=== PATIENT | female | born 1970 | race African-American/Black ===

== ENCOUNTER 2022-11-01 22:24 | Inpatient (IN) | payer MEDICAID ==
[~2022-11-01] VITALS: Ht 172.7 cm; Wt 193.0 kg
[2022-11-01 23:48] LABS: COVID AG,FIA SOURCE NASAL SWAB
[2022-11-01] MEDS ORDERED: GABA-1181 PO (23:50)
[2022-11-01 23:51] LABS: BASOPHILS % (AUTO) 0.6 % (0.0-2.0); EOSINOPHILS % (AUTO) 1.9 % (1.0-6.0); HEMATOCRIT 26.2 % (36-46); HEMOGLOBIN 8.1 g/dL (12.0-16.0); LYMPHOCYTES # (AUTO) 1.1 K/uL (1.0-4.8); LYMPHOCYTES % (AUTO) 17.9 % (22.0-44.0); MEAN CORPUSCULAR HEMOGLOBIN 21.7 pg (26.0-34.0); MEAN CORPUSCULAR HGB CONC 30.8 G/dL (31.0-37.0); MEAN CORPUSCULAR VOLUME 71 fL (80-100); MONOCYTES # (AUTO) 0.7 K/uL (0.1-1.0); MONOCYTES % (AUTO) 11.4 % (2.0-9.0); NEUTROPHILS # (AUTO) 4.3 K/uL (1.8-7.7); NEUTROPHILS % (AUTO) 68.2 % (40.0-70.0); PLATELET COUNT (AUTO) 378 K/uL (150-450); RED BLOOD CELL COUNT(AUTO) 3.72 MIL/uL (4.00-5.20); RED CELL DISTRIBUTION WIDTH 18.8 % (11.5-14.5)
[2022-11-01] MEDS ORDERED: QUET400T PO (23:51)
[2022-11-01] MEDS ORDERED: QUET200T PO (23:51)
[2022-11-01] MEDS ORDERED: MELA5TAB40 PO (23:52)
[2022-11-01] MEDS ORDERED: PROP20TA18 PO (23:52)
[2022-11-01] MEDS ORDERED: BUSP7.5T7 PO (23:54)
[2022-11-01] MEDS ORDERED: TRAZ-257 PO (23:54)
[2022-11-01] MEDS ORDERED: METH-812 PO (23:56)
[2022-11-02 00:05] LABS: ALANINE AMINOTRANSFERASE 31 U/L (12-78); ALBUMIN 3.6 g/dL (3.4-5.0); ALKALINE PHOSPHATASE 76 U/L (46-116); ANION GAP 10 mmol/L (8-16); ASPARTATE AMINOTRANSFERASE 33 U/L (15-37); BILIRUBIN,TOTAL 0.3 mg/dL (0.1-1.0); CALCIUM, TOTAL 9.9 mg/dL (8.8-10.5); CARBON DIOXIDE 27 mmol/L (22-29); CHLORIDE 97 mmol/L (98-107); CREATININE 0.87 mg/dL (0.60-1.30); GLOMERULAR FILTR. RATE CALC > 60 mL/min (>60); GLUCOSE,RANDOM 108 mg/dL (70-110); SODIUM SERUM 134 mmol/L (136-145); TOTAL PROTEIN, SERUM 7.5 g/dL (6.4-8.2); UREA NITROGEN, BLOOD 5 mg/dL (7-18)
[2022-11-02 00:06] LABS: POTASSIUM 2.9 mmol/L (3.5-5.1)
[2022-11-02] MEDS ORDERED: POTASSIUM CHLORIDE 20 MEQ ER TABLET PO ONE (00:15)
[2022-11-02] MEDS ORDERED: LORazepam 2 MG TABLET PO ONE (00:45)
[2022-11-02 01:25] LABS: AMPHET/METH SCREEN,URINE POSITIVE (NEGATIVE); BARBITURATE SCREEN, URINE NEGATIVE (NEGATIVE); BENZODIAZEPINES SCREEN,URINE NEGATIVE (NEGATIVE); CANNABINOID SCREEN,URINE NEGATIVE (NEGATIVE); COCAINE SCREEN,URINE NEGATIVE (NEGATIVE); METHADONE SCREEN, URINE NEGATIVE (NEGATIVE); OPIATE SCREEN,URINE NEGATIVE (NEGATIVE)
[2022-11-02 01:30] LABS: PHENCYCLIDINE SCREEN,URINE NEGATIVE (NEGATIVE)
[2022-11-02] MEDS ORDERED: DiphenhydrAMINE HCL 50 MG/ML VIAL IM ONE (01:45)
[2022-11-02] MEDS ORDERED: HALOPERIDOL LACTATE 5 MG/ML VIAL IM ONE (01:45)
[2022-11-02] MEDS ORDERED: LORazepam 2 MG/ML VIAL IM ONE (01:45)
[2022-11-02] MEDS ORDERED: HALOPERIDOL 5 MG TABLET PO PRN (07:45)
[2022-11-02] MEDS ORDERED: BUSP15 PO (11:06)
[2022-11-02] MEDS ORDERED: INFLUENZA VIRUS VACCINE QVS 2022-23 (6MO+)/PF 60 MCG/0.5 ML SYRINGE IM. ONE (11:15)
[2022-11-02 11:39] VITALS: BP 158/76
[2022-11-02] MEDS ORDERED: MAGNESIUM HYDROXIDE SUSPENSION 30 ML UDCUP PO PRN (19:45)
[2022-11-02] MEDS ORDERED: CloNIDine HCL 0.1 MG TABLET PO PRN (19:45)
[2022-11-02] MEDS ORDERED: MAG HYDROX/AL HYDROX/SIMETH ES 30 ML SUSPENSION UDCUP PO PRN (19:45)
[2022-11-02] MEDS ORDERED: ONDANSETRON HCL 4 MG TABLET PO PRN (19:45)
[2022-11-02] MEDS ORDERED: MELATONIN 5 MG TABLET PO PRN (19:45)
[2022-11-02] MEDS ORDERED: LOPERAMIDE HCL 2 MG CAPSULE PO PRN (19:45)
[2022-11-02] MEDS ORDERED: PETROLATUM,WHITE 28 GM JELLY TP PRN (19:45)
[2022-11-02] MEDS ORDERED: ALBUTEROL SULFATE HFA 90 MCG/PUFF 8 GM INHALER IH PRN (19:45)
[2022-11-02] MEDS ORDERED: ACETAMINOPHEN 325 MG TABLET PO PRN (19:45)
[2022-11-02] MEDS ORDERED: GuaiFENesin/D-METHORPHAN [SUGAR-FREE] 200-20MG/10 ML SYRUP UDCUP PO PRN (19:45)
[2022-11-02] MEDS ORDERED: DOCUSATE SODIUM 100 MG CAPSULE PO PRN (19:45)
[2022-11-02 21:50] VITALS: BP 149/80
[2022-11-03 08:00] VITALS: BP 116/75
[2022-11-03] MEDS: PROPRANOLOL HCL 20 MG TABLET PO SCH ×2 (08:21→16:04)
[2022-11-03] MEDS: GABAPENTIN 300 MG CAPSULE PO SCH ×2 (08:21→16:04)
[2022-11-03] MEDS: BusPIRone HCL 15 MG TABLET PO SCH ×2 (08:23→20:30)
[2022-11-03] MEDS: QUEtiapine FUMARATE 200 MG TABLET PO SCH ×2 (08:26→20:30)
[2022-11-03] MEDS: DOCOSANOL 10% 2 GM CREAM TP SCH (17:00)
[2022-11-03] MEDS: ZOLPIDEM TARTRATE 10 MG TABLET PO PRN (20:34)
[2022-11-03 20:57] VITALS: BP 158/74
[2022-11-04 08:13] VITALS: BP 108/66
[2022-11-04] MEDS: DOCOSANOL 10% 2 GM CREAM TP SCH ×3 (09:07→16:33)
[2022-11-04] MEDS: BusPIRone HCL 15 MG TABLET PO SCH ×2 (09:07→20:08)
[2022-11-04] MEDS: QUEtiapine FUMARATE 200 MG TABLET PO SCH ×2 (09:07→20:08)
[2022-11-04] MEDS: GABAPENTIN 300 MG CAPSULE PO SCH ×2 (09:07→16:27)
[2022-11-04] MEDS: PROPRANOLOL HCL 20 MG TABLET PO SCH ×2 (09:11→16:27)
[2022-11-04] MEDS: NICOTINE 14 MG/24 HOUR PATCH TD PRN (09:21)
[2022-11-04] MEDS: LORazepam 2 MG TABLET PO PRN (20:22)
[2022-11-04] MEDS: ZOLPIDEM TARTRATE 10 MG TABLET PO PRN (20:22)
[2022-11-04 21:08] VITALS: BP 115/69
[2022-11-05 08:00] VITALS: BP 117/60
[2022-11-05] MEDS: NICOTINE 14 MG/24 HOUR PATCH TD PRN (09:00)
[2022-11-05] MEDS: DOCOSANOL 10% 2 GM CREAM TP SCH ×3 (09:01→17:08)
[2022-11-05] MEDS: GABAPENTIN 300 MG CAPSULE PO SCH ×2 (09:01→17:08)
[2022-11-05] MEDS: PROPRANOLOL HCL 20 MG TABLET PO SCH ×2 (09:01→17:08)
[2022-11-05] MEDS: BusPIRone HCL 15 MG TABLET PO SCH ×2 (09:01→20:10)
[2022-11-05] MEDS: QUEtiapine FUMARATE 200 MG TABLET PO SCH ×2 (09:01→20:10)
[2022-11-05] MEDS ORDERED: DiphenhydrAMINE HCL 50 MG/ML VIAL ONE (11:06)
[2022-11-05] MEDS ORDERED: DiphenhydrAMINE HCL 50 MG/ML VIAL IM ONE (11:15)
[2022-11-05] MEDS ORDERED: HALOPERIDOL LACTATE 5 MG/ML VIAL IM ONE (11:15)
[2022-11-05] MEDS: LORazepam 2 MG TABLET PO PRN (11:18)
[2022-11-05] MEDS: ZOLPIDEM TARTRATE 10 MG TABLET PO PRN (20:50)
[2022-11-06 01:21] VITALS: BP 133/60
[2022-11-06 08:00] VITALS: BP 136/63
[2022-11-06] MEDS: QUEtiapine FUMARATE 200 MG TABLET PO SCH ×2 (08:09→20:10)
[2022-11-06] MEDS: PROPRANOLOL HCL 20 MG TABLET PO SCH ×2 (08:09→16:04)
[2022-11-06] MEDS: GABAPENTIN 300 MG CAPSULE PO SCH ×2 (08:09→16:04)
[2022-11-06] MEDS: DOCOSANOL 10% 2 GM CREAM TP SCH ×3 (08:09→16:19)
[2022-11-06] MEDS: BusPIRone HCL 15 MG TABLET PO SCH ×2 (08:09→20:10)
[2022-11-06] MEDS: LORazepam 2 MG TABLET PO PRN ×2 (08:55→16:04)
[2022-11-06] MEDS: NICOTINE 14 MG/24 HOUR PATCH TD PRN (08:55)
[2022-11-06] MEDS: BENZOCAINE/MENTHOL/ZINC CL 20% 11.9 GM GEL TP SCH (16:19)
[2022-11-06] MEDS: ZOLPIDEM TARTRATE 10 MG TABLET PO PRN (20:10)
[2022-11-06 20:48] VITALS: BP 120/65
[2022-11-07 08:32] VITALS: BP 131/70
[2022-11-07] MEDS: BENZOCAINE/MENTHOL/ZINC CL 20% 11.9 GM GEL TP SCH ×3 (09:28→16:21)
[2022-11-07] MEDS: QUEtiapine FUMARATE 200 MG TABLET PO SCH ×2 (09:28→20:09)
[2022-11-07] MEDS: PROPRANOLOL HCL 20 MG TABLET PO SCH ×2 (09:28→16:21)
[2022-11-07] MEDS: GABAPENTIN 300 MG CAPSULE PO SCH ×2 (09:28→16:21)
[2022-11-07] MEDS: BusPIRone HCL 15 MG TABLET PO SCH ×2 (09:28→20:09)
[2022-11-07] MEDS: DOCOSANOL 10% 2 GM CREAM TP SCH ×3 (09:29→16:21)
[2022-11-07] MEDS: NICOTINE 14 MG/24 HOUR PATCH TD PRN (12:24)
[2022-11-07] MEDS: LORazepam 2 MG TABLET PO PRN (12:39)
[2022-11-07] MEDS: ZOLPIDEM TARTRATE 10 MG TABLET PO PRN (20:09)
[2022-11-07 20:19] VITALS: BP 122/64
[2022-11-08] MEDS: GABAPENTIN 300 MG CAPSULE PO SCH ×2 (08:03→16:00)
[2022-11-08] MEDS: BusPIRone HCL 15 MG TABLET PO SCH ×2 (08:03→20:50)
[2022-11-08] MEDS: DOCOSANOL 10% 2 GM CREAM TP SCH ×3 (08:03→16:00)
[2022-11-08] MEDS: QUEtiapine FUMARATE 200 MG TABLET PO SCH ×2 (08:03→20:50)
[2022-11-08] MEDS: BENZOCAINE/MENTHOL/ZINC CL 20% 11.9 GM GEL TP SCH ×3 (08:03→16:00)
[2022-11-08] MEDS: PROPRANOLOL HCL 20 MG TABLET PO SCH ×2 (08:03→15:59)
[2022-11-08] MEDS: LORazepam 2 MG TABLET PO PRN ×2 (08:03→15:59)
[2022-11-08] MEDS: NICOTINE 14 MG/24 HOUR PATCH TD PRN (08:08)
[2022-11-08 10:23] VITALS: BP 118/48
[2022-11-08 12:40] VITALS: BP 110/66
[2022-11-08] MEDS: IBUPROFEN 400 MG TABLET PO PRN (12:40)
[2022-11-08 20:16] VITALS: BP 121/64
[2022-11-08] MEDS: ZOLPIDEM TARTRATE 10 MG TABLET PO PRN (20:23)
[2022-11-08 21:55] VITALS: BP 115/71
[2022-11-09 02:03] VITALS: BP 139/72
[2022-11-09] MEDS: IBUPROFEN 400 MG TABLET PO PRN (02:15)
[2022-11-09] MEDS: DOCOSANOL 10% 2 GM CREAM TP SCH (08:05)
[2022-11-09] MEDS: GABAPENTIN 300 MG CAPSULE PO SCH (08:05)
[2022-11-09] MEDS: QUEtiapine FUMARATE 200 MG TABLET PO SCH (08:05)
[2022-11-09] MEDS: BENZOCAINE/MENTHOL/ZINC CL 20% 11.9 GM GEL TP SCH (08:05)
[2022-11-09] MEDS: BusPIRone HCL 15 MG TABLET PO SCH (08:06)
[2022-11-09] MEDS: PROPRANOLOL HCL 20 MG TABLET PO SCH (08:06)
[2022-11-09] MEDS: NICOTINE 14 MG/24 HOUR PATCH TD PRN (08:49)
[2022-11-09] MEDS ORDERED: QUET200T30 PO (09:18)
[2022-11-09] MEDS ORDERED: BUSP15 PO ×2 (09:18→10:54)
[2022-11-09] MEDS ORDERED: GABA-1181 PO (09:18)
[2022-11-09] MEDS ORDERED: PROP20TA96 PO (09:18)
== END 2022-11-09 11:30 | disposition home or self-care (01) | DRG 750 ==
LOC: EMS 22:28 → B3A 11-02 08:52 → EMS 11-02 09:28
PROVIDERS: ADMIT Psychiatry & Neurology Psychiatry; ATTEND Psychiatry & Neurology Psychiatry
DX: F25.0 Schizoaffective disorder, bipolar type (principal); E87.1 Hypo-osmolality and hyponatremia; R45.850 Homicidal ideations; F41.9 Anxiety disorder, unspecified; F17.200 Nicotine dependence, unspecified, uncomplicated; F15.10 Other stimulant abuse, uncomplicated; F14.10 Cocaine abuse, uncomplicated; E87.6 Hypokalemia; E66.9 Obesity, unspecified; Z20.822 Contact with and (suspected) exposure to COVID-19; F32.A Depression, unspecified; D64.9 Anemia, unspecified; Z59.00 Homelessness unspecified; Z79.899 Other long term (current) drug therapy; Z68.44 Body mass index [BMI] 60.0-69.9, adult
CPT/HCPCS: 80053; 84132; 85025; 99285; G0480; J1200; J1630; J2060